=== PATIENT | female | born 1980 | race Caucasian/White ===

== ENCOUNTER 2025-06-01 10:50 | Outpatient (AMB) | payer OTHER, SELFPAY ==
--- NOTE | 2025-06-01 10:53 | A.OFFPC_ITS ---
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 // Med review Intake Note: New patient to establish care Drier Belt Conveyor Required: No Allergies No Known Allergies Allergy (Verified 06/01/25 10:55) Medication List - Last Reviewed 06/01/25 by Anson Kahn MA loratadine 10 mg PO DAILY sertraline 50 mg PO DAILY Tobacco use date assessed: 06/01/25 Dental Screening Dental Screen Date: 06/01/25 Did you have a dental visit in the last 12 months?: Yes Did you have a dental problem in the last 6 months where you did not have access to dental care?: No Was dental information given to patient?: Patient has dentist HPI HPI Comments 2 History of Present Illness0 Details 44 y/o F with MDD, CAMILLE, Hx of FABIAN 3, per imenopause, cold urticaria s/p partial hyst d/t HPV, removal of benign skin tumors 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 Fhx: PGM liver cancer; MGF Brain anuerysm, MGM throat ca; No breast ca, no colon ca. Bio Dad d/t MVA; Mom colonic polyps, lung lobectomy not d/t cancer; 1/2 sister alive and well. Dtr alive w/ mental health & other health conditions Health Maintenance: Tdap 2020 Flu declined 06/01/25 Pap in last year or two, [facility], will request. Mammo 2023, ordered today @ [facility] Colon cologaurd ordered for baseline Specialists SCRAP SORTER [facility] Derm for skin surveillance History of Present Illness The patient is a 44-year-old female presenting to establish care & for CPE No records, Dr Danial Bar > [facility] Anxiety and Depression: - The patient has a history of anxiety a nd depression, which are currently well- controlled on sertraline 50 mg daily. - She reports that the medication is wor tena well and denies current symptoms of anxiety or depression. Cold Urticaria: - The patient reports an unusual skin co ndition characterized by generalized pruritus. - Previous workup was unrevealing, but a prior provider suggested it could be related to cold sensitivity. - Symptoms are effectively managed by lo madsen loratadine daily, as she experiences a flare-up if she misses doses for several days. History of Partial Hysterectomy Secondary to FABIAN 3: - The patient underwent a partial hyster ectomy in 2012 due to HPV, with cervical cells progressing from FABIAN-1 to FABIAN-3 within a year. - She has experienced chronic pain with bowel movements for over 10 years following the surgery, which she suspects is due to adhesions. - Her Pap smears have been normal since the procedure. Perimenopause: - The patient believes she is in perimen opause, with her primary symptom being increased irritability. - It is difficult for her to determine h er menopausal stage as she has not had menses for over 10 years due to her hysterectomy. History of Benign Tumors of the skin: - The patient has a history of benign tu mors that were surgically removed in the past, including one from her face. - She still has tumors on her thigh and another location that have not changed in shape or size. - She sees a necktie operator pockets and pieces for skin surv eillance of moles. Abdominal Lump: - The patient has a tender lump in her a bdomen that has been present for approximately one year. - She previously had a workup for sharp chest pain @ [facility], which was thought to be indigestion or acid reflux,she reports extensive imaging completed to include her abd and it was normal. I do not have these records but have requested. Past Medical History - Anxiety, controlled with sertraline. - Depression, controlled with sertraline . - Cold urticaria managed with loratadine . 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 - History of multiple benign skin tumors with excisions. - Perimenopausal symptoms, including irr itability. - Probable gastroesophageal reflux disea se (GERD), diagnosed during a prior workup for chest pain. Past Surgical History - Partial hysterectomy in 2012. - Multiple excisions of benign tumors, i ncluding one on her face. Family History - Paternal Grandmother: Liver cancer. - Paternal Grandfather: History of an un specified cancer. - Maternal Grandmother: Throat cancer, h istory of smoking. - Maternal Grandfather: from a brai n aneurysm around age 55. - Mother: In good health; has a history of benign colon polyps and had a lung lobe removed for a non-cancerous issue. - Biological Father: in a car a ccident. - Daughter: Has mental health issues and is undergoing regular screenings for breast cancer due to a strong family history on her father's side. - Half-sister: Healthy. - No family history of breast cancer on her side. - No family history of colorectal cancer . 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 - Living Situation: Lives with her amee nd and 21-year-old daughter. Health Maintenance - Breast cancer screening: Last mammogra m was last year. - Cervical cancer screening: Last Pap sm ear was 1-2 years ago and was normal. - Colorectal cancer screening: The patie nt is turning 45 and agreed to proceed with a Cologuard test. - Skin cancer screening: Follows with de rmatology for skin surveillance, including moles. - Lab screening: Agreed to baseline bloo dwork, including CBC, chemistry panel, A1c, lipid panel, thyroid, B12, folate, and vitamin D, as well as a urinalysis. - Vaccinations: Declines the annual flu vaccine. - Last eye exam was about six months ago , no concerns for glaucoma or cataracts. Wears glasses. Review of Systems - General: Denies weakness or syncope wi th blood draws. - Psychiatric: Reports irritability. Den ies symptoms of depression or anxiety, noting they are controlled with medication. - Gynecologic: Reports being in perimeno pause. Denies menses post-hysterectomy. - Gastrointestinal: Reports chronic pain with bowel movements post-surgically, which she manages with fiber. Reports normal bowel and bladder function otherwise. Denies history of ulcerative colitis or Crohn's disease. - Dermatologic: Reports generalized prur itus which occurs in flares if she stops taking her daily loratadine. - Eyes: Reports wearing prescription gla sses. Denies concerns for glaucoma or cataracts. Physical Exam General: Well developed, well nourished, in no acute distress. Appears stated age. Head: Normocephalic, atraumatic. Eyes: Pupils are equal, round and reactive to light and accommodation. Conjunctivae are clear. Scleras nonicteric bilat. Vision grossly normal. Ears: TMs clear AU, EACS WNL Nose: Patent, without discharge. Neck: No carotid bruit bilat. Supple, no adenopathy or thyromegaly. Breast: Edu on SBE. Mammogram ordered, patient will be contacted for scheduling. Lungs: Clear to auscultation bilaterally. No rales, rhonchi or wheeze noted. Good air flow in all guzmán. Heart: Regular rate and rhythm. No murmurs, click, rubs or gallops are noted. Abdomen: Bowel sounds present in all quadrants. The abdomen is soft, nontender, with no organomegaly noted. No hernias are noted. : Deferred. Reviewed recommendations for routine SCRAP SORTER. Patient reports partial hysterectomy in 2012 due to HPV-related FABIAN-3. Pulses: Peripheral pulses are equal and palpable bilaterally. Extremities: No clubbing, cyanosis nor edema is noted. Neurologic: Gait and station normal. Cranial Nerves 2-12 intact. Motor strength grossly symmetrical and intact. No sensory loss. Balance normal. Skin: No rashes, ulcers, or lesions noted. Turgor is good. Skin color is good. Hair and nails are without abnormalities. Patient reports a history of benign tumors, with some removed surgically. Psych: Normal eye contact, affect and mood appropriate, and normal interactions. Patient is alert and appropriate to context. Depression and anxiety screens negative, managed with sertraline 50 mg. Results Pending Medical Decision Making The patient is a 44-year-old female presenting to [facility] care. Her past medical history includes anxiety and depression, which are well-controlled on sertraline 50 mg daily. She has a history of a partial hysterectomy for FABIAN 3 and reports perimenopausal symptoms such as irritability. Given that she is turning 45, age-appropriate cancer screenings were discussed. For colorectal cancer screening, she has no personal or family history of CRC, and after reviewing the options of colonoscopy versus the at-home Cologuard test, she elected to proceed with Cologuard. A routine screening mammogram will also be ordered. On examination, a tender abdominal lump was palpated. The patient reports a prior workup for similar pain, including an MRI, about a year ago, which was attributed to acid reflux. I will request these outside records to review the findings, and if the imaging is deemed insufficient, an abdominal ultrasound will be ordered to further evaluate the lump. Baseline labs will be drawn today to screen for common chronic conditions. Her medications, sertraline and loratadine, will be refilled. The patient will follow up in one year for a physical or sooner as needed and was instructed to use the patient portal for communication. Plan 1. Health Maintenance And Establishment Of Care - Labs: Ordered baseline screening labs including CBC, CMP, lipid panel, HbA1c, TSH, B12, folate, and vitamin D, as well as a urinalysis, to be drawn today. - Breast Cancer Screening: Placed an ord er for a screening mammogram; the patient will be called to schedule. - Colorectal Cancer Screening: Placed an order for a Cologuard test, which will be mailed to the patient's home. - Follow-up: Plan for an annual physical if she remains well, with as-needed visits in between. - Communication: Instructed the patient to use the patient portal for all communication needs. 2. Anxiety And Depression - Condition is stable and well-controlle d with current medication. - Medication: Sent a renewal for sertral ine 50 mg to the patient's preferred pharmacy. 3. Abdominal Lump - A tender lump was noted on exam, prese nt for about a year. - Records Review: Will obtain outside re cords, including a previous abdominal MRI, to review the prior workup. - Imaging: If the prior imaging is insuf ficient, an order for an abdominal ultrasound will be placed to further investigate the lump. 4. Cold Urticaria - Symptoms are well-managed with daily l oratadine. - Recommendation: Continue current manag ement. Patient Instructions - Please proceed to the lab today for yo ur blood and urine tests. - We have put in an order for a mammogra m. [facility] to schedule [facility]. - A Cologuard kit will be mailed to your house. It is a stool test with no special preparation. Please complete it and mail it back within two weeks. - A prescription refill for your sertral ine has been sent to your pharmacy. - For any questions, appointment needs, or if you get sick, please send a message through the patient portal. This is the fastest way to reach us. - We have walk-in clinics available in [facility] if you need to be seen without an appointment. - If you remain healthy, we will see you back in one year for your next physical. Consent The risks, benefits, and alternatives for colorectal cancer screening were discussed with the patient, as she is now 45 years old. The options presented included: 1) doing nothing and waiting until age 50, 2) undergoing a full colonoscopy, which involves a prep day and anesthesia, or 3) completing an at- home stool test (Cologuard). It was explained that Cologuard is a non-invasive screening test good for three years, and that a positive result would necessitate a follow-up colonoscopy. The patient stated she was willing to do the Cologuard test and provided verbal consent to proceed with the order. Patient was informed and verbally consented to the use of an ambient scribe for clinic note documentation during this visit. An additional 30 minutes was spent addressing the problem(s) noted at todays visit. This includes time spent before the visit reviewing the chart, time spent during the visit, and time spent after the visit on documentation reviewing laboratory results, diagnostic imaging, medications, performing a medically necessary evaluation, counseling on diagnoses, care coordination, ordering appropriate tests, ordering appropriate medications, review of tests performed by other providers, reporting test results with the patient, communication with other healthcare providers. [facility] Medical History (Updated 06/01/25 @ 11:46 by Yolanda Frey, [facility]) Anxiety and depression FABIAN III (cervical intraepithelial neoplasia grade III) with severe dysplasia HPV (human papilloma virus) infection Hx of mammogram (~2023) Surgical History (Updated 06/01/25 @ 11:01 by Anson Kahn MA) History of partial hysterectomy Family History (Updated 06/01/25 @ 11:01 by Anson Kahn MA) Mother HTN (hypertension) Social History (Updated 06/01/25 @ 11:00 by Anson Kahn MA) Household Members: Spouse and Children Both parents involved: No Caregiver staying overnight: No Housing: House Are you a primary vision care associate to a significant other at home: Yes Do you presently have visiting nurse or other home services: No 75 years or older and lives alone: No Alcohol intake: current Alcohol intake frequency: a few times a month Patient Tobacco Use Status: Never used Tobacco e-Cigarette/Vaping Use: Never Used Second Hand Smoke Exposure: No service: No Current occupational status: employed Current 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 1. Little interest or pleasure in doing things: not at all 2. Feeling down, depressed, or hopeless: not at all 3. Trouble falling or staying asleep, or sleeping too much: not at all 4. Feeling tired or having little energy: not at all 5. Poor appetite or overeating: not at all 6. Feeling bad about yourself - or that you are a failure or have let yourself or your family down: not at all 7. Trouble concentrating on things, such as reading the newspaper or watching television: not at all 8. Moving or speaking so slowly that other people could have noticed. Or the opposite - being so fidgety or restless that you have been moving around a lot more than usual: not at all 9. Thoughts that you would be better off or of hurting yourself in some way: not at all Total score: 0 Depression Screening Interpretation: Negative Depression Screening Done: Yes 28778 - PHQ-9 Billing: Yes Source: Developed by Drs. Shayne Abdullahi, Rosi Carrillo, Vitaliy Hernandez and colleagues, with an educational conchis from [employer]. Thrive Questionnaire Date Thrive assessed: 06/01/25 I am a: Patient What is your living situation today?: I have a steady place to live Within the past 12 months, did the food you bought not last and you didn't have the money to get more?: Never true Within the past 12 months, did you worry whether your food would run out before you got money to buy more?: Never true Do you have trouble paying for medicines?: No Do you have trouble getting transportation to medical appointments?: No Do you have trouble paying your heating and electricity bill?: No Do you have trouble taking care of your child, family member or friend?: No Do you have trouble with day-to-day activities such as bathing, preparing meals, shopping, managing finances, etc.?: No Are you currently unemployed and looking for a job?: No Are you interested in more education?: No Please select the resources that you would like help with: None Currently or been in a relationship where the following occur: No concerns reported THRIVE Score: 0 AUDIT C Alcohol Use Questionnaire (AUDIT-C) 1. How often do you have a drink containing alcohol?: 2-4 times a month 2. How many drinks containing alcohol do you have on a typical day when you are drinking?: 1 or 2 3. How often do you have six or more drinks on one occasion?: Never Total Score: 2 Score Reviewed/Action Taken: Yes CAMILLE-7 AMB Questionnaire CAMILLE-7 Date CAMILLE - 7 assessed: 06/01/25 Feeling nervous, anxious, or on edge: 1 = Several days Not being able to stop or control worryin = Several days Worrying too much about different things: 1 = Several days Trouble relaxin = Several days Being so restless that it is hard to sit still: 0 = Not at all Becoming easily annoyed or irritable: 2 = More than half the days Feeling afraid as if something awful might happen: 0 = Not at all Total CAMILLE-7 score (0-4 normal; 5-9 mild; 10-14 moderate; 15-21 severe): 6 Source: Developed by Drs. Shayne Abdullahi, Rosi Carrillo, Vitaliy Hernandez and colleagues, with an educational conchis from [employer]. CAMILLE-7 Assessment Billing CAMILLE-7 Assessment Tool: CAMILLE-7 Assessment 15331 Physical exam (Primary Care) Vital Signs: Last Vital Signs Temp 97.2 F 06/01/25 10:58 Pulse 67 06/01/25 10:58 Resp 12 06/01/25 10:58 BP 126/74 06/01/25 10:58 Pulse Ox 99 06/01/25 10:58 Oxygen Delivery Method Room Air 06/01/25 10:58 BMI result Body Mass Index 24.9 Tobacco/Smoking Status: Tobacco use Status Tobacco use date assessed 06/01/25 06/01/25 11:01 Patient Tobacco Use Status Never used Tobacco 06/01/25 11:01 e-Cigarette/Vaping Use Never Used 06/01/25 11:01 PHQ-9: PHQ-9 Score PHQ-9: Total score 0 06/01/25 11:01 Depression Screening Interpretation: Negative Thrive Assessment: Date of Thrive Assessment Date Thrive assessed 06/01/25 06/01/25 11:01 Currently or been in a relationship where the following occur: No concerns reported GI Abdomen image: 2 1. PALPABLE LUMP, SEMIFIRM, NOT MOBILE, MILDLY TTP ABOUT 1 INCH IN LENGTH AND 1/2 INCH IN WIDTH Coding Level of Care Code New Pt Level 3 (46486) New Pt Prev Care 40-64y(32242) Diagnoses Encounter to establish care Z76.89 CAMILLE (generalized anxiety disorder) F41.1 Mild episode of recurrent major depressive disorder F33.0 Major depression episode severity: mild History of Papanicolaou smear of cervix Z92.89 History of cold urticaria Z87.2 Abdominal mass of other site R19.09 Abdominal location: other location Colon cancer screening Z12.11 Benign neoplasm of skin, unspecified location D23.9 Skin neoplasm location: unspecified location Perimenopausal N95.1 Adult general medical exam Z00.00 Laboratory exam ordered as part of routine general medical examination Z00.00 Additional Codes CAMILLE-7 Assessment Billing - CAMILLE-7 Assessment Tool: CAMILLE-7 Assessment 20053 ([id number]) PHQ-9 - 67419 - PHQ-9 Billing: Yes ([id number]) Assessment & Plan Assessment & Plan (1) Encounter to establish care: Code(s): Z76.89 - Persons encountering health services in other specified circumstances (2) CAMILLE (generalized anxiety disorder): Code(s): F41.1 - Generalized anxiety disorder Category: Medical (3) MDD (major depressive disorder), recurrent episode: Code(s): F33.9 - Major depressive disorder, recurrent, unspecified Category: Medical Qualifiers: Major depression episode severity: mild Qualified Code(s): F33.0 - Major depressive disorder, recurrent, mild (4) History of Papanicolaou smear of cervix: Onset Date: ~2022 Code(s): Z92.89 - Personal history of other medical treatment Category: Medical (5) History of cold urticaria: Code(s): Z87.2 - Personal history of diseases of the skin and subcutaneous tissue Category: Medical (6) Abdominal mass: Code(s): R19.00 - Intra-abdominal and pelvic swelling, mass and lump, unspecified site Category: Medical Qualifiers: Abdominal location: other location Qualified Code(s): R19.09 - Other intra-abdominal and pelvic swelling, mass and lump (7) Colon cancer screening: Comment: COLOGAURD ORDERED 06/01/25 Code(s): Z12.11 - Encounter for screening for malignant neoplasm of colon Category: Medical (8) Benign skin tumor: Code(s): D23.9 - Other benign neoplasm of skin, unspecified Category: Medical Qualifiers: Skin neoplasm location: unspecified location Qualified Code(s): D23.9 - Other benign neoplasm of skin, unspecified (9) Perimenopausal: Code(s): N95.1 - Menopausal and female climacteric states Category: Medical (10) Adult general medical exam: Onset Date: ~06/01/25 Code(s): Z00.00 - Encounter for general adult medical examination without abnormal findings Category: Medical (11) Laboratory exam ordered as part of routine general medical examination: Code(s): Z00.00 - Encounter for general adult medical examination without abnormal findings Category: Medical Plan . Orders: Orders 2 Complete Blood Count no Diff Today Z00.00 - Encounter for general adult medical examination without abnormal findings Lipid Panel Today Z00.00 - Encounter for general adult medical examination without abnormal findings Vitamin B12 and Folate Today Z00.00 - Encounter for general adult medical examination without abnormal findings MM tomosynthesis screening BI Today Z12.31 - Encounter for screening mammogram for malignant neoplasm of breast Comprehensive Met. Panel Today Z00.00 - Encounter for general adult medical examination without abnormal findings Hemoglobin A1c Today Z00.00 - Encounter for general adult medical examination without abnormal findings Microalbumin, Random (w Creat) Today Z00.00 - Encounter for general adult medical examination without abnormal findings TSH reflex Free T4 Today Z00.00 - Encounter for general adult medical examination without abnormal findings Vitamin D 25-OH Total Today Z00.00 - Encounter for general adult medical examination without abnormal findings Referrals 2 Cologuard Test Z12.11 - Encounter for screening for malignant neoplasm of colon Medications: New 2 sertraline 50 mg PO DAILY 90 tabs 2RF Patient Instructions: Walk-In Care (Urgent Care): We Make it Easy Walk-in for urgent medical issues such as: ? Seasonal Allergies ? Insect Bites ? Cough ? Diarrhea ? Acute Asthma Attacks ? Back, Knee or Joint Pain ? Ear Infection ? Fever without a Rash ? Headaches ? Nausea ? [place] Eye, Rash or Skin Irritation ? Sore Throat ? Sports Physicals ? Vomiting Most insurances are accepted. Patients do not need to be part of the [facility] to seek care at the walk-in clinic. Locations [address], [place] Open Sunday through Sunday 8am-5pm *Hours may vary due to staffing availability. To confirm Walk-In Care hours please call. [address] [facility] , [place] [address] ? [phone] [facility] [facility] in [place] provides services to ages 18 and over. Open Sunday-Sunday: 7 a.m. to 5 p.m. and Sunday: 9 a.m. to 3 p.m.* *Hours may vary due to staffing availability. To confirm Walk-In Care hours in [place], please call [phone]. [address] [place] [address] ? [phone] [facility] [facility] in [place] provides services to ages 12 and over. Open Sunday-Sunday: 8 a.m. to 5 p.m. Hours may vary due to staffing availability. To confirm Walk-In Care hours in [place], please call [phone]. LABORATORY SERVICES: [facility] Lab ? Primary Location [address] [place] [address] Sunday through Sunday 6:00 AM ? 5:00 PM Sunday 7:00 AM ? 11:00 AM* [phone] The [facility] Lab is centrally located near the front entrance of the [facility] for easy outpatient access. Convenient parking is provided for outpatients. *Hours may vary due to staffing availability. To confirm Laboratory hours for any location, please call [phone]. Offsite Location For your convenience, we offer offsite laboratory draw stations at the following locations: [address] [place] [address] ? [facility] [address] [address], [address] Sunday through Sunday 7:30 AM ? 1:00 PM* [phone] *Hours may vary due to staffing availability. To confirm Laboratory hours for any location, please call [phone]. [place] ? [address] Sunday through Sunday 6:00 AM ? 3:30 PM* Sunday 6:30 AM ? 3 PM* [phone] *Hours may vary due to staffing availability. To confirm Laboratory hours for any location, please call [phone]. [address] [facility] Sunday through Sunday 7:30 AM ? 4:00 PM* [phone] *Hours may vary due to staffing availability. To confirm Laboratory hours for any location, please call [phone]. [address] [facility] Sunday through 9:00 AM ? 4:00 PM* *Hours may vary due to staffing availability. To confirm Laboratory hours for any location, please call [phone]. Appointments are not necessary. Walk-ins are welcome. Like all the departments throughout the [facility], our Lab undergoes frequent reviews to ensure the quality and accuracy of test results, and our staff takes special pride in its status as a nationally accredited facility. Patient Portal: [facility] ONE PATIENT. ONE RECORD. BETTER CARE. [facility] has a fully integrated, cutting- edge mobile electronic health information system that has revolutionized the way we care for our patients and manage our organization. This system improves communication and coordination enabling us to provide safe, higher-quality care, and an overall positive experience for staff and patients. Our first priority, as always, is to deliver the highest quality care possible. The system is running in the background supporting that priority. This portal is for all [facility] and [facility] services and practices. If you are experiencing any technical difficulties with enrolling or logging into the Patient Portal please complete the [facility] Patient Portal Technical Support Form. [facility] and [facility] now offers a new secure on-line interactive tool for patients to review their health information ? ?Patient Portal. This interactive web portal will enable patients and their families to take an active role in their care by providing easy, secure access to their health information via the internet. The Patient Portal provides patients with instant access to their health information, including laboratory results, medications, allergies, demographic information, visit history, and more. In addition to managing their own care, parents and health care proxies with authorized consent will appreciate the ability to access the records of those individuals for whom they provide care. Please note: if you wish to gain access (Proxy) to another patient?s portal, you will be required to come to the Medical Records Department in person at [facility]. Both the patient giving proxy access and the proxy will need to provide photo identification and complete the appropriate authorization. The Patient Portal also allows track their appointments online. The [facility] Patient Portal also saves patients time by allowing them to submit updates to their demographic and contact information prior to their visits. Portal email notifications will also alert patients to any new activity on their portal, such as test results and new appointments. In order to initially enroll in the [facility] Patient Portal, you will need to enter some required information including the following: * your [facility] Medical Record number * your personal home email address * name * date of Please note: In order to enroll in the [facility] Patient Portal, we need to have your email address on file in your electronic medical record. ?The email address needs to be specific for one person (yourself) in order for your Portal enrollment to be successful. ?You can update your email address in person with our Registration staff when you are registering for a hospital visit. ?Otherwise, you will need to come to the Health Information Management (Medical Records) Department at [facility]. ?We are open from Sunday ? Sunday from 7:30 a.m. ? 4:30 p.m. ?You will be required to present a photo id. Once you have successfully enrolled in the Patient Portal, you will receive a one-time user id and password for the Portal, sent to your email address. ?This will allow you to log into the Patient Portal within 99 hrs and reset your own logon id and password, and define personal security questions. ?Once your permanent login and password have been set, you can log into the [facility] Patient Portal at any time via the blue button above or from the Portal Logon button on any page of the [facility] website. [facility] and [facility] encourage all of our patients to enroll in Patient Portal as it presents a valuable opportunity for patients and their families to actively participate in their care and stay healthy Welcome to [facility]. ?We look forward to working with you. Health screenings for women You should visit your health care provider from time to time, even if you are healthy. The purpose of these visits is to: Screen for medical issues Assess your risk for future medical problems Encourage a healthy lifestyle Update vaccinations and other preventive care services Help you get to know your provider in case of an illness Information Even if you feel fine, you should still see your provider for regular checkups. These visits can help you avoid problems in the future. For example, the only way to find out if you have high blood pressure is to have it checked regularly. High blood sugar and high cholesterol levels also may not have any symptoms in the early stages. A simple blood test can check for these conditions. There are specific times when you should see your provider or receive specific health screenings. The [place] Preventive Services Task Force publishes a list of recommended screenings. Below are screening guidelines for women ages 18 to 39. BLOOD PRESSURE SCREENING Your blood pressure should be checked at least once every 3 to 5 years if: Your blood pressure is in the normal range (top number less than 120 mm Hg and bottom number less than 80 mm Hg) You don't have risk factors for high blood pressure Ask your provider if you need your blood pressure checked more often if: The top number is 120 to 129 mm Hg or the bottom number is 70 to 79 mm Hg You have diabetes, heart disease, kidney problems, are overweight, or have certain other health conditions You have a first-degree relative with high blood pressure You are Black You had high blood pressure during a If the top number is 130 mm Hg or greater or the bottom number is 80 mm Hg or greater, this is considered stage 1 hypertension. Schedule an appointment with your provider to learn how you can reduce your blood pressure. Watch for blood pressure screenings in your area. Ask your provider if you can stop in to have your blood pressure checked. BREAST CANCER SCREENING Experts do not agree about the benefits of breast self-exams in finding breast cancer or saving lives. Talk to your provider about what is best for you. A screening mammogram is not recommended for most women under age 40. Your provider may discuss and recommend mammograms, MRI scans, or ultrasounds if you have an increased risk for breast cancer, such as: A mother or sister who had breast cancer at a young age (most often starting screening earlier than the age the close relative was diagnosed) You carry a high-risk genetic marker CERVICAL CANCER SCREENING Cervical cancer screening should start at age 21 years unless your provider advises otherwise. After the first test: Women ages 21 through 29 should have a Pap test every 3 years. Exoprts do not agree on whether HPV testing is recommended for this age group. Women ages 30 through 65 should be screened with either a Pap test every 3 years or the HPV test every 5 years or both tests every 5 years (called cotesting ). Women who have been treated for precancer (cervical dysplasia) should continue to have Pap tests for 20 years after treatment or until age 65, whichever is longer. If you have had your uterus and cervix removed (total hysterectomy), and you have not been diagnosed with cervical cancer or precancer (high grade cervical neoplasia), you do not need cervical cancer screening. CHOLESTEROL SCREENING Cholesterol screening should begin at: Age 45 for women with no known risk factors for coronary heart disease Age 20 for women with known risk factors for coronary heart disease Repeat cholesterol screening should take place: Every 5 years for women with normal cholesterol levels More often if changes occur in lifestyle (including weight gain and diet) More often if you have diabetes, heart disease, kidney problems, or certain other conditions DIABETES SCREENING You should be screened for diabetes starting at age 35 and then repeated every 3 years if you have no risk factors for diabetes. Screening may need to start earlier and be repeated more often if you have other risk factors for diabetes, such as: You have a first degree relative with diabetes. You are overweight or have obesity. You have high blood pressure, prediabetes, or a history of heart disease. Screening for diabetes should be done if you are planning to become and you are overweight and have other risk factors such as high blood pressure. DENTAL EXAM Go to the dentist once or twice every year for an exam and cleaning. Your dentist will evaluate if you need more frequent visits. EYE EXAM Have an eye exam every 5 to 10 years before age 40. If you have vision problems, have an eye exam every 2 years or more often if recommended by your provider. You should have an eye exam that includes an examination of your retina (back of your eye) at least every year if you have diabetes. IMMUNIZATIONS Commonly needed vaccines include: Flu shot: get one every year. COVID-19 vaccine: ask your provider what is best for you. Tetanus-diphtheria and acellular pertussis (Tdap) vaccine: have one at or after age 19 as one of your tetanus-diphtheria vaccines if you did not receive it as an adolescent. Tetanus-diphtheria: have a booster (or Tdap) every 10 years. Varicella vaccine: receive 2 doses if you never had chickenpox or the varicella vaccine. Hepatitis B vaccine: receive 2, 3, or 4 doses, depending on your exact circumstances. Measles, mumps, and rubella (MMR) vaccine: receive 1 to 2 doses if you are not already immune to MMR. Your provider can tell you if you are immune. Ask your provider about the human papillomavirus (HPV) vaccine if: You have not received the HPV vaccine in the past You have not completed the full vaccine series (you should catch up on this shot) Ask your provider if you should receive other immunizations if you have certain health problems that increase your risk for some diseases such as pneumonia. INFECTIOUS DISEASE SCREENING Women who are sexually active should be screened for chlamydia and gonorrhea up until age 25. Women 25 years and older should be screened for chlamydia and gonorrhea if at high risk. Screening for hepatitis C: All adults ages 18 to 79 should get a one-time test for hepatitis C. people should be screened at every . Screening for human immunodeficiency virus (HIV): All people ages 15 to 65 should get a one-time test for HIV. Depending on your lifestyle and medical history, you may also need to be screened for infections such as syphilis and HIV, as well as other infections. PHYSICAL EXAM All adults should visit their provider from time to time, even if they are healthy. The purpose of these visits is to: Screen for disease Assess your risk of future medical problems Encourage a healthy lifestyle Update your vaccinations and other preventive care services Maintain a relationship with a provider in case of an illness Your height, weight, and BMI should be checked at every exam. During your exam, your provider may ask you about: Depression and anxiety Diet and exercise Alcohol and tobacco use Safety issues, such as using seat belts, smoke detectors, and intimate partner violence Your medicines and risk for interactions SKIN SELF-EXAM Your provider may check your skin for signs of skin cancer, especially if you're at high risk, such as if you: Have had skin cancer before Have close relatives with skin cancer Have a weakened immune system OTHER SCREENING Talk with your provider about colon cancer screening if you have a strong family history of colon cancer or polyps, or if you have had inflammatory bowel disease or polyps yourself. Routine bone density screening of women under 40 is not recommended.
[2025-06-01 10:58] VITALS: BP 126/74; PULSE 67; RESP 12; TEMP 36.2; O2SAT 99; BMI 24.9
== END 2025-06-01 11:33 | disposition home or self-care (01) ==
LOC: HO.HMCFM 10:51
PROVIDERS: PCP Nurse Practitioner Family; Visit Provider Nurse Practitioner Family
DX: Z00.00 Encounter for general adult medical examination without abnormal findings (principal); F41.1 Generalized anxiety disorder; F33.0 Major depressive disorder, recurrent, mild; R19.09 Other intra-abdominal and pelvic swelling, mass and lump; N95.1 Menopausal and female climacteric states; Z12.11 Encounter for screening for malignant neoplasm of colon; Z92.89 Personal history of other medical treatment; Z87.2 Personal history of diseases of the skin and subcutaneous tissue

== ENCOUNTER → 2025-06-01 10:50 | Outpatient (BNVA) | payer OTHER, SELFPAY | PROVIDERS: PCP Nurse Practitioner Family; Visit Provider Nurse Practitioner Family | DX: Z00.00 Encounter for general adult medical examination without abnormal findings (principal); L50.2 Urticaria due to cold and heat; F41.9 Anxiety disorder, unspecified; R19.00 Intra-abdominal and pelvic swelling, mass and lump, unspecified site; F41.1 Generalized anxiety disorder; F33.0 Major depressive disorder, recurrent, mild; R19.09 Other intra-abdominal and pelvic swelling, mass and lump; D23.9 Other benign neoplasm of skin, unspecified; N95.1 Menopausal and female climacteric states; Z76.89 Persons encountering health services in other specified circumstances; Z92.89 Personal history of other medical treatment; Z87.2 Personal history of diseases of the skin and subcutaneous tissue | CPT/HCPCS: 96127 ==